=== PATIENT | female | born 1950 ===

== ENCOUNTER 2024-03-24 07:06 | Day surgery (SDC) | payer MEDICARE ==
[~2024-03-24] VITALS: Ht 172.7 cm; Wt 100.3 kg
[2024-03-24] MEDS ORDERED: CeFAZolin Sodium 2,000 MG VIAL ONE (07:19)
[2024-03-24] MEDS ORDERED: Ropivacaine 0.5% HCL/PF 5 MG/ML 30ML Vial ONE ×2 (07:19→08:20)
[2024-03-24] MEDS ORDERED: Lactated Ringer's 1,000 ML IV ONE (07:45)
[2024-03-24] MEDS ORDERED: Dexamethasone Sod Phos 10 MG/ML 1ML VIAL ONE ×2 (07:47→08:57)
[2024-03-24] MEDS ORDERED: FentaNYL Citrate 50 MCG/ML 2 ML Injection ONE ×2 (07:48→07:49)
[2024-03-24] MEDS ORDERED: Midazolam HCl 1MG / ML 2ML Vial ONE (07:48)
[2024-03-24] MEDS ORDERED: propofoL 20 ML IV ONE (07:48)
[2024-03-24] MEDS ORDERED: DEXL60CA3 (07:49)
[2024-03-24] MEDS ORDERED: Lovastatin20 MG PO (07:49)
[2024-03-24] MEDS ORDERED: VALS80 PO (07:50)
--- NOTE | 2024-03-24 08:49 | NUR ---
03/24/24 0849 Cookie Shukla T/O PERFORMED AT BEDSIDE WITH BEN PETTIT AT BEDSIDE PRIOR TO NERVE BLOCK. PT PLACED ON 3 LITERS O2 VIA N/C. GROUND HAND ADMINISTERED TOTAL OF 2MG VERSED AND 50MCG FENTANYL PRIOR TO START OF BLOCKS. POPLITEAL BLOCK STARTED AT 0834 AND ENDED AT 0836. ADDUCTOR CANAL BLOCK STARTED AT 0839 AND ENDED AT 0841. PT TOLERATED PROCEDURE WELL. SPO2 AND HR MONITORED THROUGHOUT PROCEDURE.
[2024-03-24] MEDS ORDERED: Ondansetron HCl 2 MG / ML 2ML Vial ONE (08:57)
[2024-03-24] MEDS ORDERED: Lidocaine 1%-Epineph 1:100000 20 ML MDV ONE (10:12)
[2024-03-24] MEDS ORDERED: HYDROcodone 5-APAP 325 TAB ONE (11:03)
== END 2024-03-24 11:46 | disposition home or self-care (01) ==
LOC: ORSCSDS 07:06
PROVIDERS: Podiatrist Foot & Ankle Surgery
PROC: 0MQS0ZZ Repair Right Foot Bursa and Ligament, Open Approach (ICD-10-PCS; principal; 2024-03-24 08:30)
PROC: 0Q8L0ZZ Division of Right Tarsal, Open Approach (ICD-10-PCS; principal; 2024-03-24 08:30)
PROC: 0LSV0ZZ Reposition Right Foot Tendon, Open Approach (ICD-10-PCS; principal; 2024-03-24 08:30)
DX: S86.111A Strain of other muscle(s) and tendon(s) of posterior muscle group at lower leg level, right leg, initial encounter (principal); M21.41 Flat foot [pes planus] (acquired), right foot; I10 Essential (primary) hypertension; E78.5 Hyperlipidemia, unspecified; K76.0 Fatty (change of) liver, not elsewhere classified; E66.9 Obesity, unspecified; Z68.33 Body mass index [BMI] 33.0-33.9, adult; Z79.899 Other long term (current) drug therapy
CPT/HCPCS: A9270; C1713; C1769; J0690; J1100; J2250; J2405; J2704; J2795; J3010

== ENCOUNTER 2024-06-04 08:56 | Day surgery (SDC) | payer MEDICARE ==
[~2024-06-04] VITALS: Ht 172.7 cm; Wt 99.3 kg
[~2024-06-04 08:56] MED LIST changes: +Lactated Ringer's 1,000 ML IV ONE; +propofoL 50 ML IV ONE
[2024-06-04] MEDS ORDERED: Lactated Ringer's 1,000 ML IV ONE (09:53)
[2024-06-04] MEDS ORDERED: propofoL 50 ML IV ONE (11:59)
== END 2024-06-04 12:25 | disposition home or self-care (01) ==
LOC: ORSCSDS 08:56
DX: A41.9 Sepsis, unspecified organism (principal); R10.30 Lower abdominal pain, unspecified; R19.4 Change in bowel habit; R13.10 Dysphagia, unspecified; Z87.11 Personal history of peptic ulcer disease; K31.7 Polyp of stomach and duodenum; Z86.0101 Personal history of adenomatous and serrated colon polyps; Z80.0 Family history of malignant neoplasm of digestive organs; K44.9 Diaphragmatic hernia without obstruction or gangrene; K57.30 Diverticulosis of large intestine without perforation or abscess without bleeding; K22.2 Esophageal obstruction; I12.9 Hypertensive chronic kidney disease with stage 1 through stage 4 chronic kidney disease, or unspecified chronic kidney disease; N18.31 Chronic kidney disease, stage 3a; J40 Bronchitis, not specified as acute or chronic; R50.9 Fever, unspecified; Z79.899 Other long term (current) drug therapy
CPT/HCPCS: 71046; 80053; 85025; 88305; 88342; C1726; J2704; J7120

== ENCOUNTER → 2024-06-04 | Outpatient (CLI) | payer MEDICARE ==
[~2024-06-04] MED LIST: DEXL60CA3; Lovastatin20 MG PO; VALS80 PO
[2024-06-04 16:34] LABS: BASOPHILS ABSOLUTE AUTO 0.02 K/mm3 (0.00-0.23); BASOPHILS PERCENT AUTO 0 % (0-2); EOSINOPHILS ABSOLUTE AUTO 0.02 K/mm3 (0.00-0.68); EOSINOPHILS PERCENT AUTO 0 % (0-6); Hematocrit 37.9 % (33.0-51.0); Hemoglobin 12.3 g/dL (11.5-16.0); IMMATURE GRAN ABSOLUTE AUTO 0.04 K/mm3 (0.00-0.10); IMMATURE GRAN PERCENT AUTO 0 % (0-1); LYMPHOCYTES PERCENT AUTO 6 % (21-46); MONOCYTES ABSOLUTE AUTO 0.83 K/mm3 (0.16-1.47); MONOCYTES PERCENT AUTO 6 % (4-13); Mean Corpuscular HGB 26.8 pg (26.0-34.0); Mean Corpuscular HGB Conc 32.5 g/dL (31.5-36.5); Mean Corpuscular Volume 83 fL (80-100); Mean Platelet Volume 8.9 fL (9.1-12.4); NEUTROPHILS ABSOLUTE AUTO 12.71 K/mm3 (1.96-9.15); NEUTROPHILS PERCENT AUTO 88 % (41-73); Platelet Count 319 K/mm3 (150-400); RDW Coefficient Variation 15.4 % (11.7-14.2); RDW Standard Deviation 46.5 fL (35.1-46.3); Red Blood Cell Count 4.59 M/mm3 (3.80-5.20); White Blood Cell Count 14.42 K/mm3 (4.00-11.30)
[2024-06-04 16:45] LABS: Albumin/Globulin Ratio 1.1 (0.8-1.8); Bilirubin, Total 0.9 mg/dL (0.1-1.0); Bun/Creatinine Ratio 33.3 (12.0-20.0); Calcium, Blood 8.9 mg/dL (8.5-10.1); Creatinine, Blood 0.36 mg/dL (0.40-1.00); Globulin, Blood 3.7 g/dL (2.2-4.0); Potassium, Blood 3.8 mmol/L (3.5-5.5); Total Protein, Blood 7.7 g/dL (6.4-8.2)
== END ==
LOC: LAB 16:30 → LAB SHORT 16:30
PROVIDERS: Family Medicine
DX: A41.9 Sepsis, unspecified organism (principal)
CPT/HCPCS: 80053; 85025

== ENCOUNTER → 2024-07-11 | Outpatient (CLI) | payer MEDICARE ==
[~2024-07-11] MED LIST changes: -Lactated Ringer's 1,000 ML IV ONE; -propofoL 50 ML IV ONE
== END ==
LOC: LAB SHORT 19:22 → LAB 19:22
DX: N39.0 Urinary tract infection, site not specified (principal)
CPT/HCPCS: 87077; 87086; 87186

== ENCOUNTER 2025-01-26 08:37 | Day surgery (SDC) | payer MEDICARE ==
[~2025-01-26] VITALS: Ht 172.7 cm; Wt 101.3 kg
== END 2025-01-26 10:55 | disposition home or self-care (01) ==
LOC: ORSCSDS 08:37
PROVIDERS: Internal Medicine Gastroenterology
PROC: 0DB68ZX Excision of Stomach, Via Natural or Artificial Opening Endoscopic, Diagnostic (ICD-10-PCS; principal; 2025-01-26 10:15)
DX: K22.89 Other specified disease of esophagus (principal); K44.9 Diaphragmatic hernia without obstruction or gangrene
CPT/HCPCS: 88305; 88312; J2704; J7120

== ENCOUNTER → 2025-04-07 | Outpatient (CLI) | payer MEDICARE | LOC: LAB SHORT 13:21 → LAB 13:21 | DX: R93.89 Abnormal findings on diagnostic imaging of other specified body structures (principal) | CPT/HCPCS: 88305; 88342 ==